=== PATIENT | female | born 1970 | race American Indian/Alaskan Native ===

== ENCOUNTER 2016-08-25 20:42 | Emergency (ER) | payer SELFPAY ==
[2016-08-25 21:44] LABS: Basophils % (Auto) 0.5 % (0.0-1.8); Hemoglobin 12.6 gm/dl (10.1-14.3); Mean Corpuscular HGB Conc 34 % (30-34); Mean Corpuscular Hemoglobin 30 pg (28-32); Mean Corpuscular Volume 87 fl (79-97); Platelet Count 269 K/mm3 (140-440); Red Blood Count 4.25 M/mm3 (3.65-5.03); Red Cell Distribution Width 13.3 % (13.2-15.2); White Blood Count 8.7 K/mm3 (4.5-11.0)
[2016-08-25 21:56] LABS: Anion Gap 18 mmol/L; BUN/Creatinine Ratio 14.44; Blood Urea Nitrogen 13 mg/dL (7-17); Carbon Dioxide 24 mmol/L (22-30); Chloride 99.1 mmol/L (98-107); Glucose 115 mg/dL (65-100); Potassium 3.7 mmol/L (3.6-5.0); Sodium 137 mmol/L (137-145)
[2016-08-26] MEDS ORDERED: MUCINEX ER PO ONE (04:33)
[2016-08-26] MEDS ORDERED: TYLENOL #3 PO ONE (04:33)
[2016-08-26] MEDS ORDERED: TESSALON PERLES PO ONE (04:33)
[2016-08-26] MEDS ORDERED: ZOFRAN ODT PO ONE (04:33)
--- NOTE | 2016-08-26 04:39 | Emergency Department Report ---
HPI - General Chief Complaint: Chest Pain Time Seen by Provider: 08/26/16 04:25 - HPI HPI: The patient is a 45-year-old female who presents for evaluation of chest pain. The patient reports chest pain for the past 2-3 days, left sided in location, radiating under the left breast, moderate to severe, achy in quality, exacerbated with coughing. She shares that she has experienced an intermittently productive cough for the past 2 weeks, productive of yellow at times green sputum. The patient denies fever, dyspnea, CRP, hemoptysis, unilateral leg swelling, recent immobilization, history of DVT or PE, hx cancer , congenital heart disease, early onset heart disease and primary family members , or illicit substance use. She says that she has a space chest pain in the past. ED Past Medical Hx - Past Medical History Hx Hypertension: No Hx CVA: No Additional medical history: heart murmur. Ulcer(January 2015) - Surgical History Hx Coronary Stent: No Hx Open Heart Surgery: No Hx Pacemaker: No Hx Internal Defibrillator: No Hx Cholecystectomy: No Hx Appendectomy: No Hx Breast Surgery: No Additional Surgical History: Hysterectomy - Social History Smoking Status: Former Smoker Substance Use Type: None - Medications Home Medications: Home Medications Medication Instructions Recorded Confirmed Last Taken Type Hydrocodone Bit/Acetaminophen 1 each PO Q6HR PRN #10 tablet 06/22/13 Unknown Rx [Vicodin 5/500] Loratadine [Claritin] 10 mg PO DAILY #20 tablet 06/22/13 Unknown Rx Ibuprofen [Motrin] 800 mg PO Q8H PRN #15 tablet 11/14/13 Unknown Rx Ibuprofen [Motrin] 800 mg PO Q8HR PRN #60 tablet 05/02/15 Unknown Rx Metoclopramide [Reglan TAB] 10 mg PO BID PRN #10 tab 05/02/15 Unknown Rx Sulfamethoxazole/Trimethoprim 1 each PO BID #14 tablet 05/02/15 Unknown Rx [Bactrim DS TAB] traMADol [Ultram] 50 mg PO Q6HR PRN #14 tablet 05/02/15 Unknown Rx ALBUTEROL Inhaler [ProAir HFA 2 puff IH QID PRN #1 inhalation 08/26/16 Unknown Rx Inhaler] Azithromycin [Zithromax Z-DOMINIK] 250 mg PO QDAY #6 tablet 08/26/16 Unknown Rx Ibuprofen [Motrin] 800 mg PO Q8HR PRN #14 tablet 08/26/16 Unknown Rx Ondansetron [Zofran TAB] 4 mg PO Q8HR PRN #14 tablet 08/26/16 Unknown Rx Promethazine /Codeine 5 ml PO Q6H PRN #120 ml 08/26/16 Unknown Rx [Phenergan/Codeine 6.25-10 mg/5Ml] ED Review of Systems ROS: Stated complaint: SOB/CHEST PAIN/COUGHING Other details as noted in HPI Constitutional: denies: fever ENT: denies: throat or neck pain Respiratory: reports cough denies: shortness of breath Cardiovascular: reports chest pain Endocrine: denies unexplained weight loss or gain Gastrointestinal: denies: abdominal pain, nausea Genitourinary: denies: dysuria Musculoskeletal: denies: leg swelling Skin: denies: rash Neurological: denies: headache Hematological/Lymphatic: denies: easy bleeding or easy bruising Psych: denies sadness or hopelessness Physical Exam - Physical Exam Vital Signs: Vital Signs 08/25/16 08/26/16 20:51 03:14 Temperature 98.5 F 98.0 F Pulse Rate 100 H 66 Respiratory 18 18 Rate Blood Pressure 141/78 138/77 O2 Sat by Pulse 100 100 Oximetry Physical Exam: General: well-nourished, well-developed, no acute distress Head: Normocephalic, atraumatic Eyes: normal sclera ENT: Bilateral nasal congestion present, Mucous membranes are pink and moist Neck: trachea midline, neck supple, No neck stiffness, no cervical adenopathy Respiratory: Breath sounds equal bilaterally, no wheezing, rales, or rhonchi Cardio: S1 and S2 present, no murmurs, rubs, gallops, capillary refill is brisk Abdomen: Normoactive bowel sounds, soft abdomen, no rigidity, no guarding or rebound tenderness Musc: No pitting edema Skin: No rash Neuro: no facial drooping, normal speech Psych: Normal affect ED Course Vital Signs 08/25/16 08/26/16 20:51 03:14 Temperature 98.5 F 98.0 F Pulse Rate 100 H 66 Respiratory 18 18 Rate Blood Pressure 141/78 138/77 O2 Sat by Pulse 100 100 Oximetry ED Medical Decision Making - Lab Data Result diagrams: 08/25/16 21:14 08/25/16 21:14 - Medical Decision Making The patient was seen and examined by myself. The patient is placed on a internal audit director and continuous pulse ox. On initial evaluation, the patient was found to be in no distress. EKG was negative for findings suggestive of acute cardiac infarct. Labs and imaging are obtained. The patient is given Tessalon Perles for cough, dizziness, and a tablet of Tylenol 3 for her pain. Chest x- ray is negative for pneumothorax, focal consolidation, pulmonary vascular congestion, pleural effusion, or other obvious acute cardiopulmonary disease process. Lab results were non-concerning including levels of 3 sets of troponin , and nml WBC, hemoglobin, hematocrit, electrolytes, renal function. The patient was reevaluated and reported that their symptoms were improved. As the patient has a MACHELLE risk score less than 2, and a well's score less than 2, the patient is at low risk of ACS or pulmonary emboli etiology of their symptoms. The patient is stable for discharge with outpatient follow-up. The patient is given follow-up and return instructions. The patient expressed understanding and agreed with the plan. The patient is discharged in stable condition. Critical care attestation.: If time is entered above; I have spent that time in minutes in the direct care of this critically ill patient, excluding procedure time. ED Disposition Clinical Impression: Acute chest pain Acute bronchitis Qualifiers: Bronchitis organism: unspecified organism Qualified Code(s): J20.9 - Acute bronchitis, unspecified Disposition: DISCHARGED TO HOME OR SELFCARE Is pt being admited?: No Does the pt Need Aspirin: No Condition: Stable Instructions: Acute Bronchitis (ED), Chest Pain (ED), Costochondritis (ED) Referrals: PRIMARY CARE, [Primary Care Provider] - 3-5 Days Time of Disposition: 04:35
[2016-08-26] MEDS ORDERED: ZITHROMAX PO ONE (04:41)
[2016-08-26 05:39] VITALS: BP 118/68
--- NOTE | 2016-08-26 09:13 | XRay Report ---
Single view chest: History: Chest pain. Findings: Normal cardiac mediastinal silhouette. Trachea is midline. No consolidation, pneumothorax or pleural effusion. Impression: No acute cardiopulmonary findings.
== END 2016-08-26 05:15 | disposition home or self-care (01) ==
LOC: ED 20:42
DX: J20.9 Acute bronchitis, unspecified (principal); R07.9 Chest pain, unspecified; Z87.891 Personal history of nicotine dependence
CPT/HCPCS: 36415; 71010; 80048; 84484; 85025; 93005; 93010; Q0162

== ENCOUNTER 2017-04-23 07:08 | Emergency (ER) | payer SELFPAY ==
[2017-04-23 07:54] LABS: Basophils % (Auto) 0.6 % (0.0-1.8); Eosinophils % (Auto) 2.5 % (0.0-4.3); Hematocrit 36.7 % (30.3-42.9); Hemoglobin 12.8 gm/dl (10.1-14.3); Mean Corpuscular HGB Conc 35 % (30-34); Mean Corpuscular Hemoglobin 30 pg (28-32); Mean Corpuscular Volume 87 fl (79-97); Platelet Count 262 K/mm3 (140-440); Red Blood Count 4.23 M/mm3 (3.65-5.03); Red Cell Distribution Width 13.6 % (13.2-15.2); White Blood Count 4.2 K/mm3 (4.5-11.0)
[2017-04-23 08:13] LABS: Anion Gap 17 mmol/L; BUN/Creatinine Ratio 14.44; Blood Urea Nitrogen 13 mg/dL (7-17); Calcium 9.1 mg/dL (8.4-10.2); Carbon Dioxide 24 mmol/L (22-30); Chloride 101.3 mmol/L (98-107); Glucose 107 mg/dL (65-100); Potassium 4.1 mmol/L (3.6-5.0); Sodium 138 mmol/L (137-145)
--- NOTE | 2017-04-23 15:11 | Emergency Department Report ---
ED Chest Pain HPI - General Chief Complaint: Chest Pain Stated Complaint: CHEST PAIN Time Seen by Provider: 04/23/17 14:49 Source: patient Mode of arrival: Ambulatory Limitations: No Limitations - History of Present Illness Initial Comments: 46 years old female coming with chest pain started a few days ago mainly epigastric burning sensation associated with cough with yellowish sputum. Patient has history of GERD before she was on Pepcid. She had an EGD done last year which showed gastritis. Patient denied any fever or shortness of breath MD Complaint: chest pain -: Gradual Onset: during rest Pain Location: epigastric Severity scale (0 -10): 4 Quality: other (burning) Consistency: intermittent Improves With: antacids re: nausea - Related Data Previous Rx's Medication Instructions Recorded Last Taken Type Hydrocodone Bit/Acetaminophen 1 each PO Q6HR PRN #10 tablet 06/22/13 Unknown Rx [Vicodin 5/500] Loratadine [Claritin] 10 mg PO DAILY #20 tablet 06/22/13 Unknown Rx Ibuprofen [Motrin] 800 mg PO Q8H PRN #15 tablet 11/14/13 Unknown Rx Ibuprofen [Motrin] 800 mg PO Q8HR PRN #60 tablet 05/02/15 Unknown Rx Metoclopramide [Reglan TAB] 10 mg PO BID PRN #10 tab 05/02/15 Unknown Rx Sulfamethoxazole/Trimethoprim 1 each PO BID #14 tablet 05/02/15 Unknown Rx [Bactrim DS TAB] traMADol [Ultram] 50 mg PO Q6HR PRN #14 tablet 05/02/15 Unknown Rx ALBUTEROL Inhaler [ProAir HFA 2 puff IH QID PRN #1 inhalation 08/26/16 Unknown Rx Inhaler] Azithromycin [Zithromax Z-DOMINIK] 250 mg PO QDAY #6 tablet 08/26/16 Unknown Rx Ibuprofen [Motrin] 800 mg PO Q8HR PRN #14 tablet 08/26/16 Unknown Rx Ondansetron [Zofran TAB] 4 mg PO Q8HR PRN #14 tablet 08/26/16 Unknown Rx Promethazine /Codeine 5 ml PO Q6H PRN #120 ml 08/26/16 Unknown Rx [Phenergan/Codeine 6.25-10 mg/5Ml] Allergies Allergy/AdvReac Type Severity Reaction Status Date / Time No Known Allergies Allergy Verified 06/22/13 04:07 Heart Score - HEART Score History: Slightly suspicious EKG: Non-specific Age: < 45 Risk factors: 1-2 risk factors Troponin: < normal limit HEART Score: 2 - Critical Actions Critical Actions: 0-3 pts:0.9-1.7%risk of adverse cardiac event.Candidate for discharge ED Review of Systems ROS: Stated complaint: CHEST PAIN Other details as noted in HPI Comment: All other systems reviewed and negative Constitutional: denies: chills, fever Respiratory: cough. denies: orthopnea, shortness of breath, SOB with exertion Cardiovascular: chest pain. denies: palpitations, dyspnea on exertion Gastrointestinal: nausea. denies: abdominal pain, vomiting, diarrhea, constipation, hematemesis Genitourinary: denies: dysuria, frequency Neurological: denies: headache ED Past Medical Hx - Past Medical History Previous Medical History?: Yes Hx Hypertension: No Hx CVA: No Additional medical history: heart murmur. Ulcer(January 2015) - Surgical History Past Surgical History?: Yes Hx Coronary Stent: No Hx Open Heart Surgery: No Hx Pacemaker: No Hx Internal Defibrillator: No Hx Cholecystectomy: No Hx Appendectomy: No Hx Breast Surgery: No Additional Surgical History: Hysterectomy - Social History Smoking Status: Former Smoker Substance Use Type: Alcohol, Non Opiate Pain, Other - Medications Home Medications: Home Medications Medication Instructions Recorded Confirmed Last Taken Type Hydrocodone Bit/Acetaminophen 1 each PO Q6HR PRN #10 tablet 06/22/13 Unknown Rx [Vicodin 5/500] Loratadine [Claritin] 10 mg PO DAILY #20 tablet 06/22/13 Unknown Rx Ibuprofen [Motrin] 800 mg PO Q8H PRN #15 tablet 11/14/13 Unknown Rx Ibuprofen [Motrin] 800 mg PO Q8HR PRN #60 tablet 05/02/15 Unknown Rx Metoclopramide [Reglan TAB] 10 mg PO BID PRN #10 tab 05/02/15 Unknown Rx Sulfamethoxazole/Trimethoprim 1 each PO BID #14 tablet 05/02/15 Unknown Rx [Bactrim DS TAB] traMADol [Ultram] 50 mg PO Q6HR PRN #14 tablet 05/02/15 Unknown Rx ALBUTEROL Inhaler [ProAir HFA 2 puff IH QID PRN #1 inhalation 08/26/16 Unknown Rx Inhaler] Azithromycin [Zithromax Z-DOMINIK] 250 mg PO QDAY #6 tablet 08/26/16 Unknown Rx Ibuprofen [Motrin] 800 mg PO Q8HR PRN #14 tablet 08/26/16 Unknown Rx Ondansetron [Zofran TAB] 4 mg PO Q8HR PRN #14 tablet 08/26/16 Unknown Rx Promethazine /Codeine 5 ml PO Q6H PRN #120 ml 08/26/16 Unknown Rx [Phenergan/Codeine 6.25-10 mg/5Ml] ED Physical Exam - General Limitations: No Limitations General appearance: alert, in no apparent distress - Eye Eye exam: Present: normal appearance - ENT ENT exam: Present: normal exam - Neck Neck exam: Present: normal inspection - Respiratory Respiratory exam: Present: normal lung sounds bilaterally. Absent: respiratory distress, wheezes, rales, rhonchi - Cardiovascular Cardiovascular Exam: Present: regular rate, normal rhythm, normal heart sounds - GI/Abdominal GI/Abdominal exam: Present: soft. Absent: distended, tenderness, guarding, rebound, rigid, normal bowel sounds - Extremities Exam Extremities exam: Present: normal inspection - Back Exam Back exam: Present: normal inspection. Absent: CVA tenderness (R), CVA tenderness (L) - Neurological Exam Neurological exam: Present: alert, oriented X3, CN II-XII intact - Psychiatric Psychiatric exam: Present: normal affect - Skin Skin exam: Present: warm, intact, normal color ED Course Vital Signs 04/23/17 04/23/17 04/23/17 07:30 13:49 14:00 Temperature 98.1 F Pulse Rate 89 74 70 Respiratory 18 20 12 Rate Blood Pressure 132/79 139/76 Blood Pressure [Left] O2 Sat by Pulse 100 Oximetry 04/23/17 04/23/17 04/23/17 14:09 14:16 14:31 Temperature Pulse Rate 74 80 60 Respiratory 18 14 13 Rate Blood Pressure 119/59 Blood Pressure 119/89 [Left] O2 Sat by Pulse 100 100 100 Oximetry 04/23/17 14:45 Temperature Pulse Rate 66 Respiratory 14 Rate Blood Pressure 119/59 Blood Pressure [Left] O2 Sat by Pulse 100 Oximetry - Reevaluation(s) Reevaluation #1: 04/23/17 16:46 Patient stated that she is feeling much better with just been cough is much better. He'll follow-up about her labs resulted in negative chest x-ray and advised the patient to follow-up with her primary care physician if symptoms get worse she needs to come back to the ER.. MACHELLE score - Machelle Score Age > 65: (0) No Aspirin use within the Past 7 Days: (0) No 3 or more CAD Risk Factors: (0) No 2 or more Angina events in past 24 hrs: (0) No Known CAD with more than 50% Stenosis: (0) No Elevated Cardiac Markers: (0) No ST Deviation Greater than 0.5mm: (0) No MACHELLE Score: 0 ED Medical Decision Making - Lab Data Result diagrams: 04/23/17 07:40 04/23/17 07:40 - EKG Data -: EKG Interpreted by Me EKG shows normal: sinus rhythm Rate: normal - EKG Data Interpretation: no acute changes - Radiology Data Radiology results: report reviewed Negative chest x-ray for acute abnormality Critical care attestation.: If time is entered above; I have spent that time in minutes in the direct care of this critically ill patient, excluding procedure time. ED Disposition Clinical Impression: Chest pain, Acute bronchitis Disposition: DC-01 TO HOME OR SELFCARE Is pt being admited?: No Condition: Stable Instructions: Chest Pain (ED), Acute Bronchitis (ED) Referrals: PRIMARY CARE,MD [Primary Care Provider] - 3-5 Days
--- NOTE | 2017-04-23 15:31 | XRay Report ---
Single view chest: Compared to 08/26/16. History: Chest pain. Findings: Heart size at upper limit of normal. Trachea is midline. No consolidation, pneumothorax or pleural effusion. Impression: No acute cardiopulmonary findings.
[2017-04-23 17:50] VITALS: BP 124/62
== END 2017-04-23 17:10 | disposition home or self-care (01) ==
LOC: ED 07:08
DX: R07.9 Chest pain, unspecified (principal); J20.9 Acute bronchitis, unspecified; Z87.891 Personal history of nicotine dependence
CPT/HCPCS: 36415; 71010; 80048; 84484; 85025; 93005; 93010

== ENCOUNTER 2017-08-29 08:01 | Emergency (ER) | payer SELFPAY ==
[2017-08-29 08:42] VITALS: BP 134/75
--- NOTE | 2017-08-29 11:20 | Emergency Department Report ---
HPI - General Chief Complaint: Upper Respiratory Infection Time Seen by Provider: 08/29/17 10:35 - HPI HPI: Patient reports that she's been having cough with chest congestion audibly when coughing, sneezing, yellow sputum and fever with chills. Patient said she has a history of sinus infections and she's been taking [id number] sinus medication is not helping. She says she started off with nasal congestion and runny nose with sinus pressure and cough for about 2 weeks and now she is having fever and chills and she feels worse with taking sinus medication. Denies any nausea or vomiting. Denies any shortness of breath or chest pain. Denies any abdominal or back pain. Denies any urinary burning frequency or urgency. Pain is 0/10 ED Past Medical Hx - Past Medical History Previous Medical History?: No Hx Hypertension: No Hx CVA: No Additional medical history: heart murmur. Ulcer(January 2015); - Surgical History Past Surgical History?: Yes Hx Coronary Stent: No Hx Open Heart Surgery: No Hx Pacemaker: No Hx Internal Defibrillator: No Hx Cholecystectomy: No Hx Appendectomy: No Hx Breast Surgery: No Additional Surgical History: partial hysterectomy 2010, uterine ablation 2008 - Family History Family history: no significant - Social History Smoking Status: Light Tobacco Smoker Substance Use Type: None - Medications Home Medications: Home Medications Medication Instructions Recorded Confirmed Last Taken Type Hydrocodone Bit/Acetaminophen 1 each PO Q6HR PRN #10 tablet 06/22/13 Unknown Rx [Vicodin 5/500] Loratadine [Claritin] 10 mg PO DAILY #20 tablet 06/22/13 Unknown Rx Ibuprofen [Motrin] 800 mg PO Q8H PRN #15 tablet 11/14/13 Unknown Rx Ibuprofen [Motrin] 800 mg PO Q8HR PRN #60 tablet 05/02/15 Unknown Rx Metoclopramide [Reglan TAB] 10 mg PO BID PRN #10 tab 05/02/15 Unknown Rx Sulfamethoxazole/Trimethoprim 1 each PO BID #14 tablet 05/02/15 Unknown Rx [Bactrim DS TAB] traMADol [Ultram] 50 mg PO Q6HR PRN #14 tablet 05/02/15 Unknown Rx ALBUTEROL Inhaler [ProAir HFA 2 puff IH QID PRN #1 inhalation 08/26/16 Unknown Rx Inhaler] Azithromycin [Zithromax Z-DOMINIK] 250 mg PO QDAY #6 tablet 08/26/16 Unknown Rx Ibuprofen [Motrin] 800 mg PO Q8HR PRN #14 tablet 08/26/16 Unknown Rx Ondansetron [Zofran TAB] 4 mg PO Q8HR PRN #14 tablet 08/26/16 Unknown Rx Promethazine /Codeine 5 ml PO Q6H PRN #120 ml 08/26/16 Unknown Rx [Phenergan/Codeine 6.25-10 mg/5Ml] Amoxicillin [Amoxicillin TAB] 875 mg PO BID #14 tablet 04/23/17 Unknown Rx Pseudoephed/Codeine/Guaifen 10 ml PO Q4H PRN #100 ml 04/23/17 Unknown Rx [Cheratussin DAC 30-10-100 mg/5 ml] Amoxicillin/K Clav Tab [Augmentin 1 tab PO Q12HR 10 Days #20 tab 08/29/17 Unknown Rx 875 mg] Cetirizine HCl [ZyrTEC] 10 mg PO QAM #10 capsule 08/29/17 Unknown Rx Fluticasone [Flonase] 1 spray NS QDAY 14 Days #1 bottle 08/29/17 Unknown Rx ED Review of Systems ROS: Stated complaint: COLD SX Other details as noted in HPI Comment: All other systems reviewed and negative Constitutional: chills, fever Eyes: denies: eye pain, eye discharge ENT: congestion. denies: ear pain, throat pain, dental pain Respiratory: cough. denies: orthopnea, shortness of breath, SOB with exertion, SOB at rest, stridor Cardiovascular: denies: chest pain, palpitations, dyspnea on exertion, edema, syncope, paroxysmal nocturnal dyspnea Gastrointestinal: denies: abdominal pain, nausea, vomiting, diarrhea Genitourinary: denies: urgency, dysuria, frequency Skin: denies: rash Neurological: denies: headache, numbness, paresthesias, abnormal gait, vertigo Physical Exam - Physical Exam Vital Signs: Vital Signs 08/29/17 08:26 Temperature 99 F Pulse Rate 100 H Respiratory 18 Rate Blood Pressure 134/75 O2 Sat by Pulse 100 Oximetry General: This is a 46-year-old female well-nourished well-developed in no acute distress. Physical Exam: Head: Normocephalic atraumatic Ears:BIateral TM congested without erythema and loss of bony landmarks. Wesley EAC with normal exam. No mastoid bone tenderness. Mouth: Moist, no pharyngeal erythema or exudate . UVULA midline and oral airways patent. No peritonsillar abscess. Neck: Nontender to palpate, supple, normal range of motion. No adenopathy. No c- spine tenderness. Nose: Bilateral nasal mucosa congested, erythema with clear drainage. Maxillary and frontal sinuses tender to palpate. Eyes: Bilateral Sclerae and conjunctiva without injection. Bilateral pupils equal and reactive to light. Bilateral lids are normal. Normal accommodation.BEOMI Abdomen: Soft, nontender to palpation in all quadrants, no guarding or rebound tenderness. Normal bowel sounds in all quadrants and no CVA tenderness Lungs: Clear to auscultate bilaterally, no rhonchi wheezes or rales. Normal work of breathing and no chest wall tenderness. Dry cough CV: S1, S2. Regular rate and rhythm, negative murmur. Capillary refill is less than 3 seconds Skin: Clean dry and intact, no rashes or lesions Psych: Normal mood and behavior ED Course Vital Signs 08/29/17 08:26 Temperature 99 F Pulse Rate 100 H Respiratory 18 Rate Blood Pressure 134/75 O2 Sat by Pulse 100 Oximetry - Reevaluation(s) Reevaluation #1: 08/29/17 12:40 Patient stable throughout ED stay ED Medical Decision Making - Medical Decision Making ED course: Pt here reports that she has cough, congestion fever and chills. Physical findings for sinusitis with cough and congestion. I discussed diagnosis and treatment plan a patient and she is in agreement. Patient discharged home with prescription for Augmentin, Flonase, Zyrtec and to follow up with her primary care physician in 3-5 days. Critical care attestation.: If time is entered above; I have spent that time in minutes in the direct care of this critically ill patient, excluding procedure time. ED Disposition Clinical Impression: Cough in adult Acute sinusitis Qualifiers: Sinusitis location: unspecified location Recurrence: recurrent Qualified Code(s ): J01.91 - Acute recurrent sinusitis, unspecified Disposition: TO HOME OR SELFCARE Is pt being admited?: No Does the pt Need Aspirin: No Condition: Stable Instructions: Sinusitis (ED), Acute Cough (ED) Additional Instructions: Please increase her fluid intake Flush nostrils with saline nasal spray take antibiotic as prescribed F/U with primary care physician as instructed Prescriptions: Amoxicillin/K Clav Tab [Augmentin 875 mg] 1 tab PO Q12HR 10 Days #20 tab Cetirizine HCl [ZyrTEC] 10 mg PO QAM #10 capsule Fluticasone [Flonase] 1 spray NS QDAY 14 Days #1 bottle Referrals: [facility] [Outside] - 3-5 Days Forms: Work/School Release Form(ED)
== END 2017-08-29 13:03 | disposition home or self-care (01) ==
LOC: ED 08:01
DX: J01.91 Acute recurrent sinusitis, unspecified (principal); F17.200 Nicotine dependence, unspecified, uncomplicated; Z90.710 Acquired absence of both cervix and uterus
CPT/HCPCS: 87400; 99282; 99283

== ENCOUNTER 2017-10-16 19:12 | Emergency (ER) | payer SELFPAY ==
[2017-10-16 19:18] VITALS: BP 123/57
[2017-10-16] MEDS ORDERED: NACL 0.9% 1000 ML 2,000 ML IV ONE (20:20)
[2017-10-16] MEDS ORDERED: TYLENOL PO ONE (20:22)
[2017-10-16] MEDS ORDERED: MORPHINE IV ONE (20:22)
[2017-10-16] MEDS ORDERED: ZOFRAN IV ONE (20:22)
[2017-10-16 20:36] LABS: Basophils # (Auto) 0.1 K/mm3 (0.0-0.1); Basophils % (Auto) 0.6 % (0.0-1.8); Eosinophils # (Auto) 0.2 K/mm3 (0.0-0.4); Eosinophils % (Auto) 2.2 % (0.0-4.3); Hematocrit 38.4 % (30.3-42.9); Hemoglobin 13.1 gm/dl (10.1-14.3); Lymphocytes % (Auto) 21.6 % (13.4-35.0); Mean Corpuscular HGB Conc 34 % (30-34); Mean Corpuscular Hemoglobin 30 pg (28-32); Mean Corpuscular Volume 87 fl (79-97); Monocytes # (Auto) 0.5 K/mm3 (0.0-0.8); Monocytes % (Auto) 5.8 % (0.0-7.3); Platelet Count 312 K/mm3 (140-440); Red Blood Count 4.44 M/mm3 (3.65-5.03); Red Cell Distribution Width 13.5 % (13.2-15.2)
[2017-10-16 20:50] LABS: BUN/Creatinine Ratio 17; Blood Urea Nitrogen 17 mg/dL (7-17); Hemolysis Index 33
[2017-10-16] MEDS ORDERED: ROCEPHIN/NS 1 GM/50 ML 1 GM/50 ML BAG IV ONE (21:07)
--- NOTE | 2017-10-16 21:10 | Emergency Department Report ---
Chief Complaint: Urogenital-Female Stated Complaint: PAINFUL LUMP ON RT BREAST Time Seen by Provider: 10/16/17 20:10 - HPI History of Present Illness: The patient is a 46-year-old female who presents for evaluation of right breast and chest pain. She reports swelling, redness, and pain to the right breast for the past one week, progressively worsening, severe the past one day, exacerbated with movement or lying on her right side. The patient denies trauma to the chest, cough, dyspnea, syncope, hemoptysis, unilateral leg swelling, oral contraceptive use, recent immobilization, history of DVT or PE. She says that she received a mammogram within the past week, but has not received the results. - Exam Vital Signs: Vital Signs 10/16/17 10/16/17 19:16 19:20 Temperature 100.1 F H 100.1 F H Pulse Rate 89 89 Respiratory 16 17 Rate Blood Pressure 123/57 Blood Pressure 123/57 [Right] O2 Sat by Pulse 100 100 Oximetry MSE screening note: Focused history and physical exam performed. Due to findings the following was ordered: ED Medical Decision Making - Lab Data Result diagrams: 10/16/17 20:22 10/16/17 20:22 ED Disposition for MSE Condition: Stable Referrals: PRIMARY CARE, [Primary Care Provider] - 3-5 Days
[2017-10-16] MEDS ORDERED: cefTRIAXone 1 GM in NACL 0.9% 20 ML IV ONE (21:15)
--- NOTE | 2017-10-16 23:05 | XRay Report ---
FINAL REPORT PROCEDURE: XR CHEST ROUTINE 2V TECHNIQUE: PA and lateral chest radiographs were obtained. CPT 48233 HISTORY: right chest wall pain COMPARISON: No prior studies are available for comparison. FINDINGS: Heart: Normal. Mediastinum/Vessels: Normal. Lungs/Pleural space: Normal. Bony thorax: No acute osseous abnormality. Other: IMPRESSION: Normal examination.
--- NOTE | 2017-10-16 23:55 | Ultrasound Report ---
FINAL REPORT PROCEDURE: US BREAST RT LIMITED TECHNIQUE: eal-time sonography in multiple planes of the RIGHT breast was performed with image documentation; limited. HISTORY: right breast swelling/mass COMPARISON: No prior studies are available for review in this patient FINDINGS: RIGHT breast: Limited evaluation of the medial aspect of the right breast is performed by ultrasound. There is a irregular density in the 3:00 position of the right breast. This region measures 15 x 17 x 22 millimeters. There ill-defined inferior margins. Minimal fluid is noted in a portion of this region. There is some internal debris. This lesion is in the region the 3 o'clock position of the right breast just below the skin surface. The differential is extensive and will include a breast mass as well as possible soft tissue complications such as a small irregular hematoma or infection. Clinical correlation is essential in this case. No previous imaging studies are available for review. Followup breast imaging should include comparison into possible mammographic studies. If treatment is provided for this region repeat imaging may be necessary for full differentiation of this finding IMPRESSION: Irregular density in the 3 o'clock position of the right breast measures 15 x 17 x 22 millimeters. This is discussed above in detail. The differential is extensive and includes a breast mass as well as possible soft tissue complications. Followup evaluation will be essential. A breast tumor is not excluded by this study.
--- NOTE | 2017-10-17 01:38 | Emergency Department Report ---
HPI - General Chief Complaint: Urogenital-Female Time Seen by Provider: 10/16/17 20:10 - HPI HPI: The patient is a 46-year-old female who presents for evaluation of right breast and chest pain. She reports swelling, redness, and pain to the right breast for the past one week, progressively worsening, severe the past one day, exacerbated with movement or lying on her right side. The patient denies trauma to the chest, cough, dyspnea, syncope, hemoptysis, unilateral leg swelling, oral contraceptive use, recent immobilization, history of DVT or PE. She says that she received a mammogram within the past week, but has not received the results. ED Past Medical Hx - Past Medical History Previous Medical History?: Yes Hx Hypertension: No Hx CVA: No Additional medical history: heart murmur. Ulcer(January 2015); - Surgical History Past Surgical History?: Yes Hx Coronary Stent: No Hx Open Heart Surgery: No Hx Pacemaker: No Hx Internal Defibrillator: No Hx Cholecystectomy: No Hx Appendectomy: No Hx Breast Surgery: No Additional Surgical History: partial hysterectomy 2010, uterine ablation 2008 - Social History Smoking Status: Never Smoker Substance Use Type: None - Medications Home Medications: Home Medications Medication Instructions Recorded Confirmed Last Taken Type Hydrocodone Bit/Acetaminophen 1 each PO Q6HR PRN #10 tablet 06/22/13 Unknown Rx [Vicodin 5/500] Loratadine [Claritin] 10 mg PO DAILY #20 tablet 06/22/13 Unknown Rx Ibuprofen [Motrin] 800 mg PO Q8H PRN #15 tablet 11/14/13 Unknown Rx Ibuprofen [Motrin] 800 mg PO Q8HR PRN #60 tablet 05/02/15 Unknown Rx Metoclopramide [Reglan TAB] 10 mg PO BID PRN #10 tab 05/02/15 Unknown Rx Sulfamethoxazole/Trimethoprim 1 each PO BID #14 tablet 05/02/15 Unknown Rx [Bactrim DS TAB] traMADol [Ultram] 50 mg PO Q6HR PRN #14 tablet 05/02/15 Unknown Rx ALBUTEROL Inhaler [ProAir HFA 2 puff IH QID PRN #1 inhalation 08/26/16 Unknown Rx Inhaler] Azithromycin [Zithromax Z-DOMINIK] 250 mg PO QDAY #6 tablet 08/26/16 Unknown Rx Ibuprofen [Motrin] 800 mg PO Q8HR PRN #14 tablet 08/26/16 Unknown Rx Ondansetron [Zofran TAB] 4 mg PO Q8HR PRN #14 tablet 08/26/16 Unknown Rx Promethazine /Codeine 5 ml PO Q6H PRN #120 ml 08/26/16 Unknown Rx [Phenergan/Codeine 6.25-10 mg/5Ml] Amoxicillin [Amoxicillin TAB] 875 mg PO BID #14 tablet 04/23/17 Unknown Rx Pseudoephed/Codeine/Guaifen 10 ml PO Q4H PRN #100 ml 04/23/17 Unknown Rx [Cheratussin DAC 30-10-100 mg/5 ml] Amoxicillin/K Clav Tab [Augmentin 1 tab PO Q12HR 10 Days #20 tab 08/29/17 Unknown Rx 875 mg] Cetirizine HCl [ZyrTEC] 10 mg PO QAM #10 capsule 08/29/17 Unknown Rx Fluticasone [Flonase] 1 spray NS QDAY 14 Days #1 bottle 08/29/17 Unknown Rx Acetaminophen/Codeine [Tylenol 1 tab PO Q4HR PRN #15 tablet 10/17/17 Unknown Rx /Codeine # 3 tab] Ibuprofen 800 mg PO Q8H PRN #30 tablet 10/17/17 Unknown Rx Sulfamethoxazole/Trimethoprim 1 each PO BID #20 tablet 10/17/17 Unknown Rx [Bactrim DS TAB] ED Review of Systems ROS: Stated complaint: PAINFUL LUMP ON RT BREAST Other details as noted in HPI Constitutional: fever Eyes: denies: eye pain, eye discharge, vision change ENT: denies: ear pain, throat pain Respiratory: denies: cough, shortness of breath, wheezing Cardiovascular: denies: chest pain, palpitations Endocrine: no symptoms reported Gastrointestinal: denies: abdominal pain, nausea, diarrhea Genitourinary: other (right breast swelling and pain) Musculoskeletal: denies: back pain, joint swelling, arthralgia Skin: denies: rash, lesions Neurological: denies: headache, weakness, paresthesias Psychiatric: denies: anxiety, depression Hematological/Lymphatic: denies: easy bleeding, easy bruising Physical Exam - Physical Exam Vital Signs: Vital Signs 10/16/17 10/16/17 10/17/17 19:16 19:20 01:29 Temperature 100.1 F H 100.1 F H 99.8 F H Pulse Rate 89 89 82 Respiratory 16 17 Rate Blood Pressure 123/57 Blood Pressure 123/57 [Right] O2 Sat by Pulse 100 100 Oximetry Physical Exam: GENERAL: Alert and oriented x3, no apparent distress, Normal Gait, atraumatic. HEAD: Head is normocephalic and a-traumatic. EYES: Extra ocular muscles are intact. Pupils are equal, round, and reactive to light and accommodation. MOUTH:Mouth is well hydrated and without lesions. Mucous membranes are moist. Patent airways. NECK: Supple. Non edematous, No carotid bruits. No lymphadenopathy or thyromegaly. LUNGS: Symetrical with respiration, No wheezing, no rales or crackles, CTAB. HEART: S1, S2 present, regular rate and rhythm without murmur, no rubs, no gallops. ABDOMEN: No organomegaly was noted,Positive bowel sounds, soft, and non- distended. . BREAST: Symetrical, Supple bilaterally, right breast medial approximately 3:00 and 5:00 swelling indurated erythematous tenderness no discharge noted from nipple EXTREMITIES/MUSCULOSKELETAL: No cyanosis, clubbing, rash, lesions or edema. Full ROM bilaterally. UE/LE Pulses 2+ bilaterally. LE and UE 5+ strength bilaterally NEUROLOGIC: No focal Deficit, Cranial nerves II through XII are grossly intact. No loss of sensation, No facial droop, PSYCHIATRIC: Mood is congruent with affect, denies suicidal or homicidal ideations. SKIN: Warm and dry, No lesions, No ulceration , induration present right breast approximately 3 and 5:00. With erythematous and edematous with tenderness to palpate ED Course Vital Signs 10/16/17 10/16/17 10/17/17 19:16 19:20 01:29 Temperature 100.1 F H 100.1 F H 99.8 F H Pulse Rate 89 89 82 Respiratory 16 17 Rate Blood Pressure 123/57 Blood Pressure 123/57 [Right] O2 Sat by Pulse 100 100 Oximetry ED Medical Decision Making - Lab Data Result diagrams: 10/16/17 20:22 10/16/17 20:22 - Radiology Data FINAL REPORT PROCEDURE: US BREAST RT LIMITED TECHNIQUE: eal-time sonography in multiple planes of the RIGHT breast was performed with image documentation; limited. HISTORY: right breast swelling/mass COMPARISON: No prior studies are available for review in this patient FINDINGS: RIGHT breast: Limited evaluation of the medial aspect of the right breast is performed by ultrasound. There is a irregular density in the 3:00 position of the right breast. This region measures 15 x 17 x 22 millimeters. There ill-defined inferior margins. Minimal fluid is noted in a portion of this region. There is some internal debris. This lesion is in the region the 3 o'clock position of the right breast just below the skin surface. The differential is extensive and will include a breast mass as well as possible soft tissue complications such as a small irregular hematoma or infection. Clinical correlation is essential in this case. No previous imaging studies are available for review. Followup breast imaging should include comparison into possible mammographic studies. If treatment is provided for this region repeat imaging may be necessary for full differentiation of this finding IMPRESSION: Irregular density in the 3 o'clock position of the right breast measures 15 x 17 x 22 millimeters. This is discussed above in detail. The differential is extensive and includes a breast mass as well as possible soft tissue complications. Followup evaluation will be essential. A breast tumor is not excluded by this study. Transcribed By: [facility] Dictated By: LLUVIA GARCIA MD Electronically Authenticated By: LLUVIA GACRIA MD Signed Date/Time: 10/16/172348 DD/ 48 TD/TT: 10/16/172348 Chest x-ray normal examination - Medical Decision Making Patient has been evaluated by this provider in fast track. Dr. Chambers has evaluated patient and on picking up to discharge patient. Patient has had IV morphine IV ceftriaxone ultrasound of right breast. I ordered ibuprofen. I discussed the patient that I will place her on Bactrim since she's had ceftriaxone and is imperative that she follows up with her progress specialist. I discussed ultrasound results. I informed her that were treated her for a cellulitis but it's important for her to have follow-up care to rule out any malignancy cyst mass. Patient is given a copy of her ultrasound on discharge. Patient reports that she is followed by [place] [facility] for her mammograms. Patient does not have a primary care provider at this time. Patient verbalized understanding. Critical care attestation.: If time is entered above; I have spent that time in minutes in the direct care of this critically ill patient, excluding procedure time. ED Disposition Clinical Impression: Cellulitis of right breast, Breast mass, right Disposition: [id number] TO HOME OR SELFCARE Is pt being admited?: No Does the pt Need Aspirin: No Condition: Stable Instructions: Cellulitis (ED), Breast Mass (ED) Additional Instructions: Please take antibiotics and pain medication as prescribed. Please do not operate heavy machinery taken Tylenol 3. It is imperative that she follow up with one of the breast specialist within the next week. I have listed several below. Prescriptions: Acetaminophen/Codeine [Tylenol /Codeine # 3 tab] 1 tab PO Q4HR PRN #15 tablet PRN Reason: Pain Ibuprofen 800 mg PO Q8H PRN #30 tablet PRN Reason: Pain Sulfamethoxazole/Trimethoprim [Bactrim DS TAB] 1 each PO BID #20 tablet Referrals: PRIMARY CARE, [Primary Care Provider] - 3-5 Days [facility], [facility] [Provider Group] - 3-5 Days Forms: Work/School Release Form(ED)
[2017-10-17] MEDS ORDERED: MOTRIN PO ONE (01:51)
== END 2017-10-17 02:23 | disposition home or self-care (01) ==
LOC: ED 19:12
DX: N61.0 Mastitis without abscess (principal)
CPT/HCPCS: 36415; 71046; 76642; 80048; 82140; 84703; 85025; 86140; 87040; 93005; 93010; 96361; 96374; 96375; 99284; J0696; J2270; J2405; J7030

== ENCOUNTER 2022-02-08 17:48 | Emergency (ER) | payer SELFPAY ==
[2022-02-08 18:24] VITALS: BP 141/85
== END 2022-02-08 19:30 | disposition left against medical advice (07) ==
LOC: ED 17:48
DX: T78.40XA Allergy, unspecified, initial encounter (principal); R06.02 Shortness of breath; Z53.21 Procedure and treatment not carried out due to patient leaving prior to being seen by health care provider; X58.XXXA Exposure to other specified factors, initial encounter